=== PATIENT | female | born 1935 | race Native Hawaiian/Other Pacific Islander ===

== ENCOUNTER 2016-09-14 05:36 | Day surgery (SDC) | payer MEDICARE ==
[2016-08-30 11:46] VITALS: BMI 21.4
[2016-09-14 07:24] VITALS: O2SAT 100
[2016-09-14] MEDS ORDERED: Propofol 10 mg/ml Inj (20 ML) ONE (07:56)
[2016-09-14] MEDS ORDERED: Etomidate 20 mg/10ml Inj IV ONE (07:57)
[2016-09-14] MEDS ORDERED: Lidocaine Hydrochloride 5 ML INJ ONE (07:57)
[2016-09-14] MEDS ORDERED: Phenylephrine 10 mg/ml Inj ONE (07:57)
[2016-09-14 08:51] VITALS: TEMP 97.8
[2016-09-14 09:14] VITALS: RESP 18
[2016-09-14 09:32] VITALS: BP 117/59; PULSE 57
== END 2016-09-14 09:28 | disposition home or self-care (01) ==
LOC: C.ENDO 05:36
PROVIDERS: ATTEND Internal Medicine Gastroenterology
DX: Z12.11 Encounter for screening for malignant neoplasm of colon (principal); D12.2 Benign neoplasm of ascending colon; D12.4 Benign neoplasm of descending colon; K57.30 Diverticulosis of large intestine without perforation or abscess without bleeding; K64.1 Second degree hemorrhoids; Z80.0 Family history of malignant neoplasm of digestive organs; I10 Essential (primary) hypertension; E11.9 Type 2 diabetes mellitus without complications; E78.5 Hyperlipidemia, unspecified; E03.9 Hypothyroidism, unspecified; Z90.710 Acquired absence of both cervix and uterus; Z98.890 Other specified postprocedural states; Z79.84 Long term (current) use of oral hypoglycemic drugs; Z79.899 Other long term (current) drug therapy

== ENCOUNTER 2016-10-09 03:10 | Emergency (ER) | payer MEDICARE ==
[2016-10-09 03:10] VITALS: BMI 21.4
[2016-10-09 03:30] VITALS: RESP 18; O2SAT 98
[2016-10-09] MEDS ORDERED: DiphenhydrAMINE 50 mg/ml Inj IM STA (04:16)
[2016-10-09] MEDS ORDERED: DiphenhydrAMINE 50 mg/ml Inj ONE (04:25)
[2016-10-09 04:53] VITALS: BP 130/73; PULSE 67; TEMP 98.1
--- NOTE | 2016-10-09 05:22 | C.PDOC ---
History Of Present Illness 80 year old female presents to the ED with complaints of a pruritic facial rash which began around 1 week ago. Patient states she took Benadryl at home with minimal relief. Patient notes she switched to using a new facial soap around 2 months ago, but is unsure whether the change may be causing her current symptoms. Patient denies fever, chills, short of breath, tongue swelling, or lip swelling. Time Seen by Provider: 10/09/16 03:43 Chief Complaint (Nursing): Abnormal Skin Integrity History Per: Patient History/Exam Limitations: no limitations Onset/Duration Of Symptoms: Other (1 week ) Current Symptoms Are (Timing): Still Present Quality Of Symptoms: Painful, Itching Additional History Per: Patient Past Medical History Reviewed: Historical Data, Nursing Documentation, Vital Signs Vital Signs: Last Vital Signs Temp 98.1 F 10/09/16 04:52 Pulse 67 10/09/16 04:52 Resp 18 10/09/16 04:52 BP 130/73 10/09/16 04:52 Pulse Ox 98 10/09/16 20:54 - Medical History PMH: Gall Bladder Disease, HTN, Hypercholesterolemia, Hypothyroidism Surgical History: Cholecystectomy Family History: States: Unknown Family Hx - Social History Hx Alcohol Use: No Hx Substance Use: No - Immunization History Hx Tetanus Toxoid Vaccination: No Hx Influenza Vaccination: No Hx Pneumococcal Vaccination: No Review Of Systems Constitutional: Negative for: Fever, Chills ENT: Negative for: Throat Swelling Respiratory: Negative for: Shortness of Breath Skin: Positive for: Rash (pruritic, facial ) Physical Exam - Physical Exam Appears: Non-toxic, No Acute Distress Skin: Warm, Dry, Rash (dry, scaly, erythematous rash diffusely around face ) Head: Atraumatic Eye(s): bilateral: Normal Inspection Oral Mucosa: Moist Neck: Supple Chest: Symmetrical, No Deformity, No Tenderness Cardiovascular: Rhythm Regular, No Murmur Respiratory: Normal Breath Sounds, No Rales, No Rhonchi, No Wheezing Extremity: Normal ROM, Capillary Refill (less than 2 seconds ) Neurological/Psych: Normal Speech, Normal Cognition Gait: Steady ED Course And Treatment O2 Sat by Pulse Oximetry: 98 (on RA) Pulse Ox Interpretation: Normal Progress Note: Patient recevied Benadryl PO and Prednisone PO. On reassessment, patient is resting comfortably, showing no signs of distress, and reports an improvement in her symptoms. Patient is stable for discharge and is advised to follow up with her PMD within 1-2 days for further evaluation. Disposition Counseled Patient/Family Regarding: Diagnosis, Need For Followup, Rx Given - Disposition Referrals: Messi Valdes MD [Staff Provider] - Disposition: HOME/ ROUTINE Disposition Time: 05:19 Condition: STABLE Additional Instructions: Please take all meds as directed Return to ER if worse Prescriptions: Cetirizine HCl [Zyrtec] 10 mg PO DAILY #20 capsule Hydrocortisone 0.5% 0.5 % TP BID #1 tube predniSONE [Prednisone] 40 mg PO DAILY #8 tab Instructions: Contact Dermatitis (ED) Forms: [email or web address] ([place]) - Clinical Impression Clinical Impression: Contact dermatitis - Scribe Statement The provider has reviewed the documentation as recorded by the Scribsarah Mcbride All medical record entries made by the Scribe were at my direction and personally dictated by me. I have reviewed the chart and agree that the record accurately reflects my personal performance of the history, physical exam, medical decision making, and the department course for this patient. I have also personally directed, reviewed, and agree with the discharge instructions and disposition.
== END 2016-10-09 05:31 | disposition home or self-care (01) ==
LOC: C.ER 03:10
DX: L25.9 Unspecified contact dermatitis, unspecified cause (principal)
CPT/HCPCS: 96372; 99283; J1200